=== PATIENT | male | born 1960 | race African-American/Black ===

== ENCOUNTER 2017-08-20 07:41 | Emergency (ER) | payer OTHER ==
[~2017-08-20] VITALS: Ht 172.7 cm; Wt 110.3 kg
[2017-08-20 08:39] LABS: EOSINOPHIL (%) 0.6 % (0-5); HEMATOCRIT 47.8 % (38.0-50.0); IMMATURE GRANULOCYTE (%) 0.2 % (0.0-0.7); INSTRUMENT ABS NEUTROPHIL CT 2.4 K/uL; LYMPHOCYTE COUNT 2.2 K/uL (1.0-2.8); MCH 20.8 PG (29.0-34.0); MCHC 31.2 G/DL (30.0-36.0); MCV 66.9 FL (86-99); MEAN PLAT.VOLUME 10.1 uM^3 (9.0-12.4); MONOCYTE (%) 7.6 % (3-12); MONOCYTE COUNT 0.4 K/uL (0-0.8); NEUTROPHIL (%) 47.9 % (45-76); NEUTROPHIL COUNT 2.4 K/uL (1.8-6.4); PLATELET COUNT 179 K/uL (156-360); RBC DIS.WIDTH-CV 17.9 % (11.8-14.6); RBC DIS.WIDTH-SD 37.2 % (39-53); RED BLOOD COUNT 7.15 M/uL (4.00-5.50); WHITE BLOOD COUNT 5.1 K/uL (4.1-10.2)
[2017-08-20 08:41] LABS: PROTHROMBIN TIME 11.5 SEC (10.2-12.9)
[2017-08-20 08:43] LABS: PTT 28.4 SEC (25-37)
[2017-08-20 08:58] LABS: TROP-I INTERPRETATION NEGATIVE; TROPONIN-I 0.02 ng/mL (0.0-0.30)
[2017-08-20 08:59] LABS: CHLORIDE 102 mEq/L (99-109); POTASSIUM 4.4 mEq/L (3.7-5.4); SODIUM 136 mEq/L (136-147)
[2017-08-20 09:01] LABS: GLUCOSE 269 mg/dL (70-99)
[2017-08-20 09:02] LABS: ANION GAP 10 MEQ/L (2-14)
[2017-08-20 09:05] LABS: GFR ESTIMATE (CALCULATED) > 59 mL/min/ (58.99-99999); UREA NITROGEN (BUN) 13 mg/dL (9-23)
[2017-08-20 14:18] VITALS: BP 114/71
== END 2017-08-20 15:36 | disposition short-term general hospital (02) ==
LOC: EME 07:41
PROVIDERS: Emergency Medicine
DX: I63.9 Cerebral infarction, unspecified (principal); I10 Essential (primary) hypertension; E11.9 Type 2 diabetes mellitus without complications
CPT/HCPCS: 70450; 70496; 70498; 71010; 80048; 84484; 85025; 85610; 85730; 93005; 99281; 99285

== ENCOUNTER 2017-08-25 12:43 | Inpatient (IN) | payer OTHER ==
[~2017-08-25] VITALS: Ht 172.7 cm; Wt 110.9 kg
[2017-08-25] MEDS ORDERED: TYLENOL REGULA325 MG PO (12:58)
[2017-08-25] MEDS ORDERED: ASPIRIN325 MG PO (12:59)
[2017-08-25] MEDS ORDERED: LIPITOR40 MG PO (13:00)
[2017-08-25] MEDS ORDERED: HEPARIN SO5000 UNIT4 SC (13:01)
[2017-08-25] MEDS ORDERED: LEVEMIR FL100 UNIT/1 SC (13:04)
[2017-08-25] MEDS ORDERED: LABETALOL HCL200 MG PO (13:05)
[2017-08-25] MEDS ORDERED: COZAAR100 MG PO (13:06)
[2017-08-25] MEDS ORDERED: NOVOLOG PE100 UNITS/ SC (13:07)
[2017-08-25 13:10] VITALS: BP 176/89
[2017-08-25 14:20] LABS: POINT-OF-CARE METER ID UU13113720
[2017-08-25 15:52] VITALS: BP 156/78
[2017-08-25 16:34] LABS: POINT-OF-CARE METER ID UU14174215
[2017-08-25 20:55] VITALS: BP 172/90
[2017-08-25 20:58] LABS: POINT-OF-CARE METER ID UU13113720
[2017-08-25 23:42] VITALS: BP 167/77
[2017-08-26 05:08] VITALS: BP 134/68
[2017-08-26 05:52] LABS: HEMATOCRIT 38.2 % (38.0-50.0); MCH 20.7 PG (29.0-34.0); MCHC 30.6 G/DL (30.0-36.0); MCV 67.6 FL (86-99); MEAN PLAT.VOLUME 10.3 uM^3 (9.0-12.4); PLATELET COUNT 165 K/uL (156-360); RBC DIS.WIDTH-CV 15.8 % (11.8-14.6); RBC DIS.WIDTH-SD 38.2 % (39-53); RED BLOOD COUNT 5.65 M/uL (4.00-5.50); WHITE BLOOD COUNT 4.6 K/uL (4.1-10.2)
[2017-08-26 06:13] LABS: ALKALINE PHOSPHATASE 61 IU/L (3-129); ANION GAP 7 MEQ/L (2-14); CHLORIDE 103 MEQ/L (99-109); GFR ESTIMATE (CALCULATED) > 59 mL/min/ (58.99-99999); GLUCOSE 184 mg/dL (70-99); POTASSIUM 3.9 MEQ/L (3.7-5.4); SAMPLE HEMOLYSIS CHECK 0; SAMPLE ICTERIC CHECK 0; SAMPLE LIPEMIA CHECK 0; SODIUM 138 MEQ/L (136-147); TOTAL BILIRUBIN 0.6 MG/DL (0.0-1.0); UREA NITROGEN (BUN) 11 mg/dL (9-23)
[2017-08-26 07:02] LABS: POINT-OF-CARE METER ID UU13113720; POINT-OF-CARE USER ID ENVGAF
[2017-08-26 11:21] LABS: POINT-OF-CARE METER ID UU13113720
[2017-08-26 15:32] VITALS: BP 149/78
[2017-08-26 15:50] LABS: HDL CHOLESTEROL 42 MG/DL (Desirable>=40); LDL CHOLESTEROL 129 mg/dL (Desirable<100); NON-HDL CHOLESTEROL 161 mg/dL (Desirable<160); TOTAL CHOLESTEROL 203 mg/dL (Desirable<200); TRIGLYCERIDES 158 MG/DL (Normal: <150)
[2017-08-26 16:27] LABS: POINT-OF-CARE METER ID UU14174215
[2017-08-26 21:22] LABS: POINT-OF-CARE METER ID UU14174215
[2017-08-26 21:45] VITALS: BP 137/73
[2017-08-27 06:03] VITALS: BP 133/73
[2017-08-27 07:04] LABS: POINT-OF-CARE METER ID UU14174215; POINT-OF-CARE USER ID ENVGAF
[2017-08-27 11:24] LABS: POINT-OF-CARE METER ID UU14174215
[2017-08-27 15:09] VITALS: BP 126/62
[2017-08-27 16:41] LABS: POINT-OF-CARE METER ID UU14174215
[2017-08-27 21:38] LABS: POINT-OF-CARE METER ID UU13113720
[2017-08-28 06:00] VITALS: BP 143/64
[2017-08-28 07:36] LABS: POINT-OF-CARE METER ID UU13113720; POINT-OF-CARE USER ID AHSSSJB31
[2017-08-28 11:43] LABS: POINT-OF-CARE METER ID UU14174215; POINT-OF-CARE USER ID AHSSSJB31
[2017-08-28 15:00] VITALS: BP 131/73
[2017-08-28 16:35] LABS: POINT-OF-CARE METER ID UU13113720
[2017-08-28 21:09] LABS: POINT-OF-CARE METER ID UU14174215
[2017-08-29 05:34] VITALS: BP 142/72
[2017-08-29 07:18] LABS: POINT-OF-CARE METER ID UU13113720; POINT-OF-CARE USER ID AHSSSJB31
[2017-08-29 11:58] LABS: POINT-OF-CARE METER ID UU13113720; POINT-OF-CARE USER ID AHSSSJB31
[2017-08-29 16:23] VITALS: BP 182/93
[2017-08-29 17:10] LABS: POINT-OF-CARE METER ID UU14174215
[2017-08-29 17:59] VITALS: BP 165/69
[2017-08-29 20:52] VITALS: BP 140/70
[2017-08-29 21:10] LABS: POINT-OF-CARE METER ID UU13113720
[2017-08-30 05:34] VITALS: BP 124/63
[2017-08-30 06:54] LABS: POINT-OF-CARE METER ID UU13113720
[2017-08-30 11:40] LABS: POINT-OF-CARE METER ID UU13113720; POINT-OF-CARE USER ID AHSSSJB31
[2017-08-30 15:14] VITALS: BP 129/72
[2017-08-30 16:42] LABS: POINT-OF-CARE METER ID UU13113720
[2017-08-30 20:58] VITALS: BP 126/68
[2017-08-30 21:19] LABS: POINT-OF-CARE METER ID UU13113720
[2017-08-31 05:29] VITALS: BP 111/60
[2017-08-31 06:54] LABS: POINT-OF-CARE METER ID UU13113720
[2017-08-31 11:07] LABS: POINT-OF-CARE METER ID UU13113720
[2017-08-31 15:04] VITALS: BP 105/66
[2017-08-31 16:01] LABS: POINT-OF-CARE METER ID UU13113720
[2017-08-31 21:03] LABS: POINT-OF-CARE METER ID UU14174215
[2017-09-01 06:00] VITALS: BP 129/63
[2017-09-01 07:07] LABS: POINT-OF-CARE METER ID UU13113720; POINT-OF-CARE USER ID ENVGAF
[2017-09-01 11:32] LABS: POINT-OF-CARE METER ID UU13113720; POINT-OF-CARE USER ID ENVGAF
[2017-09-01 15:47] VITALS: BP 118/65
[2017-09-01 16:22] LABS: POINT-OF-CARE METER ID UU13113720
[2017-09-01 21:02] LABS: POINT-OF-CARE METER ID UU14174215
[2017-09-02 05:59] VITALS: BP 111/57
[2017-09-02 07:22] LABS: POINT-OF-CARE METER ID UU13113720; POINT-OF-CARE USER ID AHSSSJB31
[2017-09-02] MEDS ORDERED: LEVEMIR100 UNIT/2 SC (12:02)
[2017-09-02] MEDS ORDERED: LIPITOR40 MG PO (12:02)
[2017-09-02] MEDS ORDERED: COZAAR100 MG PO (12:02)
[2017-09-02] MEDS ORDERED: LABETALOL HCL200 MG PO (12:02)
[2017-09-02] MEDS ORDERED: ASPIRIN325 MG PO (12:02)
[2017-09-02 12:03] LABS: POINT-OF-CARE METER ID UU13113720; POINT-OF-CARE USER ID AHSSSJB31
== END 2017-09-02 13:08 | DRG 57 ==
LOC: 3WEST 12:43 → ENPENDDIS 09-03
PROVIDERS: Physical Medicine & Rehabilitation Pain Medicine
PROC: F07M0ZZ Range of Motion and Joint Mobility Treatment of Musculoskeletal System - Whole Body (ICD-10-PCS; principal; 2017-08-25)
DX: I69.354 Hemiplegia and hemiparesis following cerebral infarction affecting left non-dominant side (principal); I69.322 Dysarthria following cerebral infarction; I69.392 Facial weakness following cerebral infarction; I10 Essential (primary) hypertension; E78.00 Pure hypercholesterolemia, unspecified; K21.9 Gastro-esophageal reflux disease without esophagitis; R13.10 Dysphagia, unspecified; I69.391 Dysphagia following cerebral infarction; E11.319 Type 2 diabetes mellitus with unspecified diabetic retinopathy without macular edema; I69.398 Other sequelae of cerebral infarction; H53.2 Diplopia; E66.3 Overweight; Z68.37 Body mass index [BMI] 37.0-37.9, adult
CPT/HCPCS: 80053; 80061; 82948; 85027; 92507 GN; 92523 GN; 97112 GO; 97530 GP; 97532 GN; J1650; J1815

== ENCOUNTER 2017-11-18 17:04 | Emergency (ER) | payer BC ==
[~2017-11-18] VITALS: Ht 172.7 cm; Wt 119.7 kg
[~2017-11-18 17:04] MED LIST: ASPIRIN325 MG PO; COZAAR100 MG PO; HEPARIN SO5000 UNIT4 SC; LABETALOL HCL200 MG PO; LEVEMIR FL100 UNIT/1 SC; LEVEMIR100 UNIT/2 SC; LIPITOR40 MG PO; NOVOLOG PE100 UNITS/ SC; TYLENOL REGULA325 MG PO
[2017-11-18 17:15] VITALS: BP 152/91
[2017-11-18 18:20] LABS: HEMATOCRIT 40.8 % (38.0-50.0); MCH 21.6 PG (29.0-34.0); MCHC 31.9 G/DL (30.0-36.0); MCV 67.9 FL (86-99); PLATELET COUNT 183 K/uL (156-360); RBC DIS.WIDTH-CV 15.9 % (11.8-14.6); RBC DIS.WIDTH-SD 37.8 % (39-53); RED BLOOD COUNT 6.01 M/uL (4.00-5.50)
[2017-11-18 18:26] LABS: CHLORIDE 103 mEq/L (99-109); POTASSIUM 4.3 mEq/L (3.7-5.4); SODIUM 139 mEq/L (136-147)
[2017-11-18 18:28] LABS: GLUCOSE 197 mg/dL (70-99)
[2017-11-18 18:32] LABS: CREATININE 1.3 mg/dL (0.6-1.3); GFR ESTIMATE (CALCULATED) > 59 mL/min/ (58.99-99999); UREA NITROGEN (BUN) 21 mg/dL (9-23)
[2017-11-18 18:38] LABS: TROP-I INTERPRETATION NEGATIVE; TROPONIN-I 0.02 ng/mL (0.0-0.30)
[2017-11-18] MEDS ORDERED: ESGIC 50-325-41 EAC1 PO (22:16)
== END 2017-11-18 22:20 | disposition home or self-care (01) ==
LOC: EME 17:04
PROVIDERS: Family Medicine
DX: R51 Headache (principal); I25.10 Atherosclerotic heart disease of native coronary artery without angina pectoris; E11.9 Type 2 diabetes mellitus without complications; I69.354 Hemiplegia and hemiparesis following cerebral infarction affecting left non-dominant side; Z95.1 Presence of aortocoronary bypass graft; Z79.4 Long term (current) use of insulin
CPT/HCPCS: 70450; 80048; 84484; 85027; 93005; 99281; 99284

== ENCOUNTER 2017-12-18 12:04 | Emergency (ER) | payer BC ==
[~2017-12-18] VITALS: Ht 172.7 cm; Wt 114.5 kg
[~2017-12-18 12:04] MED LIST changes: +ESGIC 50-325-41 EAC1 PO
[2017-12-18 14:57] LABS: CARBON DIOXIDE (BICARBONATE) 28.5 MEQ/L (20-31)
[2017-12-18 15:07] LABS: ALBUMIN 3.7 g/dL (3.2-4.8); CHLORIDE 105 mEq/L (99-109); POTASSIUM 4.2 mEq/L (3.7-5.4); SODIUM 139 mEq/L (136-147)
[2017-12-18 15:10] LABS: GLUCOSE 93 mg/dL (70-99); TOTAL PROTEIN 7.4 g/dL (6.4-8.3)
[2017-12-18 15:11] LABS: TOTAL BILIRUBIN 0.4 mg/dL (0.0-1.0)
[2017-12-18 15:13] LABS: ALKALINE PHOSPHATASE 108 IU/L (3-129); GFR ESTIMATE (CALCULATED) > 59 mL/min/ (58.99-99999)
[2017-12-18 15:14] LABS: UREA NITROGEN (BUN) 15 mg/dL (9-23)
[2017-12-18 15:15] LABS: AST (GOT) 14 IU/L (2-34)
[2017-12-18 15:16] LABS: ALT (GPT) 27 IU/L (3-49)
[2017-12-18 15:17] LABS: BASOPHIL (%) 0.5 % (0-1); EOSINOPHIL (%) 4.1 % (0-5); EOSINOPHIL COUNT 0.3 K/uL (0-0.3); HEMATOCRIT 26.3 % (38.0-50.0); HEMOGLOBIN 8.1 G/DL (12.5-16.6); IMMATURE GRANULOCYTE (%) 0.2 % (0.0-0.7); LYMPHOCYTE (%) 27.7 % (15-42); LYMPHOCYTE COUNT 1.8 K/uL (1.0-2.8); MCHC 30.8 G/DL (30.0-36.0); MCV 68.1 FL (86-99); MONOCYTE (%) 13.3 % (3-12); MONOCYTE COUNT 0.9 K/uL (0-0.8); NEUTROPHIL (%) 54.2 % (45-76); NEUTROPHIL COUNT 3.5 K/uL (1.8-6.4); PLATELET COUNT 323 K/uL (156-360); RBC DIS.WIDTH-CV 16.1 % (11.8-14.6); RED BLOOD COUNT 3.86 M/uL (4.00-5.50); WHITE BLOOD COUNT 6.4 K/uL (4.1-10.2)
[2017-12-18 15:22] LABS: TROP-I INTERPRETATION NEGATIVE; TROPONIN-I 0.06 ng/mL (0.0-0.30)
[2017-12-18] MEDS ORDERED: LEVAQUIN750 MG PO (16:56)
[2017-12-18] MEDS ORDERED: COLACE100 MG PO (16:56)
[2017-12-18] MEDS ORDERED: IRON240 MG PO (16:56)
[2017-12-18 17:11] VITALS: BP 144/88
== END 2017-12-18 17:26 | disposition home or self-care (01) ==
LOC: EME 12:04
PROVIDERS: Emergency Medicine
DX: J18.9 Pneumonia, unspecified organism (principal); D64.9 Anemia, unspecified; I10 Essential (primary) hypertension; E11.9 Type 2 diabetes mellitus without complications; I25.10 Atherosclerotic heart disease of native coronary artery without angina pectoris; Z95.1 Presence of aortocoronary bypass graft; Z79.4 Long term (current) use of insulin; Z86.73 Personal history of transient ischemic attack (TIA), and cerebral infarction without residual deficits; Z87.891 Personal history of nicotine dependence
CPT/HCPCS: 71250; 80053; 82803; 83605; 83880; 83930; 84484; 85025; 87040; 87502; 93005; 99281; 99285; J1956; J7030